=== PATIENT | female | born 1960 | race Caucasian/White ===

== ENCOUNTER → 2020-12-16 | Outpatient (CLI) | payer OTHER ==
--- NOTE | 2020-12-16 15:38 | XR ---
EXAMINATION TYPE: XR cervical spine comp DATE OF EXAM: 12/16/2020 COMPARISON: None HISTORY: 60-year-old female M5 0.20 TECHNIQUE: 5 views FINDINGS: Uncovertebral joint and facet arthropathy. Changes result in moderate to severe bony neural foraminal narrowing on the left at C5-C6 and C6-C7, moderate at C4-C5. On the right, changes result in moderate to severe bony neural foraminal narrowing at C4-C5 and moder ate at C5-C6 and C6-C7. Mild to moderate disc/endplate degenerative change with endplate spondylosis at C4-C7 levels. Alignme nt is maintained. Straightening of the normal cervical lordosis. No predental space widening or preve rtebral soft tissue swelling. Normal odontoid view. IMPRESSION: Moderate multilevel spondylotic change. No malalignment. Variable bony neuroforaminal narrowing as ou tlined above.
== END | disposition home or self-care (01) ==
LOC: RADXRMAIN 12:48
PROVIDERS: ATTEND Psychiatry & Neurology Neurology
DX: M50.20 Other cervical disc displacement, unspecified cervical region (principal)
CPT/HCPCS: 72050

== ENCOUNTER → 2021-01-03 | Outpatient (CLI) | payer OTHER ==
--- NOTE | 2021-01-03 09:18 | P.PAINCN ---
History of Present Illness - Reason for Consult Consult date: 01/03/21 - History of Present Illness This is a 60-year-old patient referred by Dr. Brenner for right occipital nerve block. Patient has been having significant migraine headaches for some time. Pain is located mostly on the right side starting in the back of her head with radiation into the front of her head, however she notes that sometimes she can have global right-sided headaches. She is currently being managed with a muscle relaxer, [place], Xanax. Her brain MRI showed that there were some scattered hyperintensities suggesting possible demyelination but she is not being worked up for anything active multiple sclerosis at this time. She recalls some type of injection in [address] Villafana but is unsure what type of injection was and only helped for a few days. In addition to above, 13-point review of systems is also negative for chest pain, shortness of breath, changes in vision, changes in hearing, new onset weakness, abdominal pain, diarrhea, extreme fatigue, malaise, fever, skin casanova es, homicidal or suicidal ideation, or bowel or bladder incontinence. Physical exam: Vital Signs: Reviewed in EMR GENERAL: Well appearing, in no acute distress PSYCH: Mood and affect is appropriate. Awake, alert, and oriented SKIN: Skin color, texture, turgor normal, no rashes or lesions HEENT: Normocephalic, atraumatic. EOM intact CV: No pedal edema RESP: Respirations are unlabored, no audible wheezing GI: Abdomen non-distended MUSCULOSKELETAL: Bilateral upper and lower extremity strength is normal and symmetric. No atrophy or tone abnormalities are noted. Neck: No pain to palpation over the cervical paraspinous muscles. Spurling negative, Axial Loading Test negative, Sunshine's sign negative. No pain with neck flexion, extension, or lateral flexion. No obvious deformity or signs of trauma. Normal cervical lordotic curve and normal cervical spine range of motion Tenderness to palpation over right ELLIOT/ROSY area NEUR: Bilateral upper and lower extremity coordination and muscle stretch reflexes are physiologic and symmetric. Negative clonus. No loss of sensation is noted. Cranial nerves are grossly intact. Imaging: Cervical X-ray 12/2020 There is moderate to severe bony neural foraminal narrowing on the left at C5-C6 and C7, moderate at C4-C5. On the right there is moderate to severe bony neural foraminal narrowing at C4-C5 and moderate at C5-C6 and C6-C7. Overall there is mild to moderate degenerative changes between C4 and C7. Assessment: 1. Occipital neuralgia 2. Chronic daily migraine headache Plan: - Schedule for right occipital nerve block. I spent 50 minutes on patient care today. The time was used to review medical records including relevant urine studies and prescription history (MAPs), review of the available imaging, evaluation and examination the patient, coordination of care at the medical staff and if applicable referring physicians, as well as creation of the medical record. Past Medical History Past Medical History: Coronary Artery Disease (CAD), Diabetes Mellitus, Hyperlipidemia, Hypertension, Skin Disorder, Sleep Apnea/CPAP/BIPAP Additional Past Medical History / Comment(s): headache, psoriasis, diverticulitis History of Any Multi-Drug Resistant Organisms: None Reported Past Surgical History: Heart Catheterization With Stent Additional Past Surgical History / Comment(s): colonoscopy Past Anesthesia/Blood Transfusion Reactions: No Reported Reaction, Motion Sickness Date of Last Stent Placement:: 01/07/20 Smoking Status: Current some day smoker Medications and Allergies Home Medications Medication Instructions Recorded Confirmed Type ALPRAZolam [Xanax] 0.25 mg PO DAILY PRN 09/21/20 12/30/20 History Aspirin [Adult Low Dose Aspirin EC] 81 mg PO DAILY 09/21/20 12/30/20 History Citalopram Hydrobromide 20 mg PO DAILY 09/21/20 12/30/20 History [Citalopram HBr] HYDROcodone/APAP 10-325MG [[place] 1 tab PO TID 09/21/20 12/30/20 History 10-325] Nitroglycerin Sl Tabs [Nitrostat] 0.4 mg SUBLINGUAL Q5M PRN 09/21/20 12/30/20 History Ozempic 0.5 mg IM TU 09/21/20 12/30/20 History Prasugrel [Effient] 10 mg PO DAILY 09/21/20 12/30/20 History Rosuvastatin Calcium [Crestor] 40 mg PO DAILY 09/21/20 12/30/20 History Topiramate 50 mg PO BID 09/21/20 12/30/20 History atenoloL 12.5 mg PO BID 09/21/20 12/30/20 History buPROPion HCL [buPROPion HCL Xl] 150 mg PO BID 09/21/20 12/30/20 History Cyclobenzaprine [Flexeril] 5 mg PO DAILY 12/30/20 12/30/20 History Allergies Allergy/AdvReac Type Severity Reaction Status Date / Time No Known Allergies Allergy Verified 12/30/20 12:16 PQRS Measure Charge Sheet PQRS Narrative: Pain Intensity [Neck] 8 Scale Used Numeric (1 - 10) Home Medications: Ambulatory Orders ALPRAZolam [Xanax] 0.25 mg PO DAILY PRN 09/21/20 Aspirin [Adult Low Dose Aspirin EC] 81 mg PO DAILY 09/21/20 Citalopram Hydrobromide [Citalopram HBr] 20 mg PO DAILY 09/21/20 HYDROcodone/APAP 10-325MG [[place] 10-325] 1 tab PO TID 09/21/20 Nitroglycerin Sl Tabs [Nitrostat] 0.4 mg SUBLINGUAL Q5M PRN 09/21/20 Ozempic 0.5 mg IM TU 09/21/20 Prasugrel [Effient] 10 mg PO DAILY 09/21/20 Rosuvastatin Calcium [Crestor] 40 mg PO DAILY 09/21/20 Topiramate 50 mg PO BID 09/21/20 atenoloL 12.5 mg PO BID 09/21/20 buPROPion HCL [buPROPion HCL Xl] 150 mg PO BID 09/21/20 Cyclobenzaprine [Flexeril] 5 mg PO DAILY 12/30/20
[2021-01-03 09:24] VITALS: BP 110/74; PULSE 82; RESP 18; TEMP 97.9
== END | disposition home or self-care (01) ==
LOC: PNWHC3 08:54
PROVIDERS: ATTEND Anesthesiology
DX: M54.81 Occipital neuralgia (principal)
CPT/HCPCS: 99211

== ENCOUNTER 2021-02-08 08:04 | Day surgery (SDC) | payer OTHER ==
[2021-02-04 16:16] VITALS: BMI 36.4
[2021-02-08] MEDS ORDERED: LACTATED RINGERS 1,000 ML IV ONE ×2 (08:25)
[2021-02-08 08:36] VITALS: TEMP 97.6
[2021-02-08 08:38] LABS: Glucose,Whole Blood 97 mg/dL (75-99)
[2021-02-08] MEDS ORDERED: fentaNYL (PF) 50 MCG/ML 2 ML AMP ONE (08:45)
[2021-02-08] MEDS ORDERED: methylPREDNISolone ACETATE 40 MG/ML 1 ML VIAL ONE (08:45)
[2021-02-08] MEDS ORDERED: LACTATED RINGERS 1,000 ML IV SCH (08:45)
[2021-02-08] MEDS ORDERED: MIDAZOLAM 2 MG/2 ML VIAL ONE (08:45)
[2021-02-08] MEDS ORDERED: ROPIVACAINE 5MG/ML 20ML VIAL ONE (08:45)
[2021-02-08] MEDS ORDERED: IV FLUID CONTINUATION 700 ML IV ONE (09:00)
--- NOTE | 2021-02-08 09:03 | P.PCN ---
Date of Procedure: 02/08/21 Description of Procedure: PREOPERATIVE DIAGNOSIS: Occipital neuralgia, and headaches POSTOPERATIVE DIAGNOSIS: Occipital neuralgia, and headaches PROCEDURES: 1. Right-sided Greater occipital nerve block SURGEON: Angely Castellanos ANESTHESIA: Local and IV sedation : Versed 2 mg, and fentanyl 50 g. EBL: None. Specimen removed: None PROCEDURE INDICATIONS: This patient with a history of chronic headaches, and occipital neuralgia. Patient tried conservative therapy. Came here for intervention management. Procedure and Findings: The patient was seen and examined and written informed consent was obtained after explaining the risks, benefits and alternative of the procedure to the patient. As per patient request for anxiety IV was started in the preoperative holding area for sedation. The patient was positioned in the sitting position with the head slightly flexed and forehead rested on a pillow. By palpation, the external occipital protuberance and mastoid process were identified and mid point in between was located. The target point for greater occipital nerve was just medial to the occipital artery pulsation. The skin preparation was done with ChloraPrep X2 and sterile technique was observed throughout the procedure. A 25-guage, 1.5 inch needle was used for the procedure. A 25-gauge 1.5 inch needle was placed vertically downward, bony contact was obtained, negative aspiration was confirmed and 8 ml solution was injected. The needle was redirected little medially and laterally in a fanning fashion and addition medication was injected after negative aspiration. The block solution containing 0.5% preservative-free bupivacaine 7 mL +40 MG of Depo-Medrol. The needle was removed, needle puncture sites were cleaned and pressure was applied. The patient tolerated the procedure very well. COMPLICATIONS: None. DISPOSITION / PLANS: The patient was placed in a supine position and transferred to the recovery area in a stable condition for observation and was discharged from the recovery room after meeting discharge criteria. Home discharge instructions given to the patient by the staff. The patient was reexamined prior to discharge. The patient will schedule for follow-up visit with the pain clinic in 2-4 weeks duration.
[2021-02-08 09:19] VITALS: BP 99/65; PULSE 67; RESP 20
== END 2021-02-08 09:32 | disposition home or self-care (01) ==
LOC: ORPAIN 08:04
DX: M54.81 Occipital neuralgia (principal); I10 Essential (primary) hypertension; I25.10 Atherosclerotic heart disease of native coronary artery without angina pectoris; Z95.818 Presence of other cardiac implants and grafts
CPT/HCPCS: 64405; J2250; J1030; J3010; J2795

== ENCOUNTER → 2021-03-02 | Outpatient (CLI) | payer OTHER ==
[2021-03-02 10:40] VITALS: BP 128/71; PULSE 78; RESP 18; TEMP 98.1
--- NOTE | 2021-03-02 10:41 | P.PN ---
Subjective Progress Note Date: 03/02/21 Principal diagnosis: Cervical radiculitis, daily migraine headaches Virginia is a 60-year-old female presenting to clinic today for follow-up appointment after a right occipital nerve block. She reports since that nerve block she has gotten greater than 40-50% relief. She feels like her headaches severities have decreased since injection. Today she is reporting sensory nerve blocks she now has a pain in her right arm which she describes as a pressure. The pain radiates down her arm and affects her first second and third digit of her right hand. Reports that pain is worse with sitting, lying, and driving. Pain is better with rest and medications. She has on the waiting list for physical therapy and she has seen a chiropractor without help. Her neurologist has recently ordered an x-ray of her C-spine and identified arthritis. She is following up with an MRI of her C-spine for continued headaches and arm pain. She reports the pain in her neck and arm is about a 5 out of 10 on average was going up to 8 out of 10 at its worst. Objective - Exam Physical Examinations : -Constitutiona : Cooperative , not in acute distress . -HEENT : nech : supple , no Lymphadenopathy , normal thyroid size . : eyes : no ptosis , no icterus, no photophobia . - neurologic : Cranial nerve II to XII intact , no focal neurological deffecit . -psychatric : alert , oriented X 3 , appropriate affect , intact judgment and insight . -Lymphatic : no Lymphadenopathy . - musculoskeltal : Cervical Spine motor stregnth in the deltoid and biceps, normal right side , normal Left side motor stregnth biceps and the wrist extensors normal right side ,normal left side . motor stregnth in the triceps muscle . normal Right side , normal Left side deep tendon reflexes normal at the biceps , normal at Brachioradialis , normal at triceps. cervical facet loading test: Positive Bilaterally Spurling test= positive Right Neck distraction test= positive Right Bri sign= negative Assessment and Plan Assessment: Assessment:Daily migraine headaches; cervical radiculopathy Plan: She could benefit from cervical epidural steroid injection at C7-T1 Continue to follow with neurology regarding her headaches - PQRS measures = - Patient's medications are documented in the chart. -Tobacco use is positive and counseling.Given. -Patient's has not received pneumococcal vaccine. -Advanced care planning discussed, patient not eligible. - -Pain positive and follow-up visit/procedure is scheduled. -Patient's blood pressure measured [ 127/93 ] , and documented in the record ,and patient will follow up with the primary care. -Patient was not identified as an unhealthy alcohol user Time with Patient: Less than 30
== END | disposition home or self-care (01) ==
LOC: PNWHC3 09:19
PROVIDERS: ATTEND Student in an Organized Health Care Education/Training Program
DX: M54.12 Radiculopathy, cervical region (principal); G43.909 Migraine, unspecified, not intractable, without status migrainosus
CPT/HCPCS: 99211

== ENCOUNTER 2021-05-26 11:10 | Day surgery (SDC) | payer OTHER ==
[2021-05-10 15:42] VITALS: BMI 36.6
[~2021-05-26 11:10] MED LIST: LACTATED RINGERS 1,000 ML IV SCH
[2021-05-26 11:41] VITALS: RESP 16; TEMP 98.1
[2021-05-26] MEDS ORDERED: LIDOCAINE 1% (10MG/ML) FOR IV START INTRADERMA ONE (11:54)
[2021-05-26] MEDS ORDERED: LACTATED RINGERS 1,000 ML IV ONE (11:55)
[2021-05-26 11:58] LABS: Glucose,Whole Blood 91 mg/dL (75-99)
[2021-05-26] MEDS ORDERED: DEXAMETHASONE SOD PHOSPHATE 10 MG/ML 1 ML VIAL ONE (12:17)
[2021-05-26] MEDS ORDERED: IOPAMIDOL M200 10 ML VIAL ONE (12:17)
[2021-05-26] MEDS ORDERED: MIDAZOLAM 2 MG/2 ML VIAL ONE (12:17)
[2021-05-26] MEDS ORDERED: fentaNYL (PF) 50 MCG/ML 2 ML AMP ONE (12:17)
--- NOTE | 2021-05-26 12:31 | P.PCN ---
Date of Procedure: 05/26/21 Procedure(s) Performed: . PROCEDURE 1. Cervical epidural steroid injection under fluoroscopic guidance, C7-T1 (fluoroscopy images available in the radiology department ) 2. Cervical epidurogram. PREOPERATIVE DIAGNOSIS: 1- Cervical herniated Disc Diseases 2- Cervical radiculopathy. POSTOPERATIVE DIAGNOSIS: : same as preop diagnosis ANESTHESIA: Local anesthesia with lidocaine 1 % , and moderate sedation, with Versed 1 mg and Fentanyl 50 mcg. EBL 0 PROCEDURE INDICATION: The patient with neck pain and radiculitis unresponsive to conservative treatment consents for procedure. PROCEDURE DESCRIPTION / TECHNIQUE: The patient was seen and identified in the preoperative area. Risks, benefits, complications, including but not limited to infections ,bleeding , allergic reactions to the medications ,and not complete pain releife, and alternatives were discussed with the patient, the patient agreed to proceed with the procedure and signed the consent. Patient was taken to the OR and time out was completed. The patient was placed in the prone position on the procedure table. A pillow wa s placed under the patients chest to increase the cervical interlaminar space. The cervical area was prepped and draped in the usual sterile fashion. Vital signs were closely monitored during the procedure. Conscious sedation was used during the procedure to decrease patients anxiety. Using anterior-posterior fluoroscopy, the C7-T1 interlaminar space was identified and the skin over this site was marked and then infiltrated with 1% lidocaine subcutaneously. Subsequently, a 20-gauge 3-1/2-inch Tuohy epidural needle was inserted and advanced toward the epidural space by means of the ``hanging-drop technique and guided by AP and lateral fluoroscopy. The correct needle position in the epidural space was verified with the injection of 2 mL of the water soluble contrast dye [id number]-200 and observing an excellent epidurogram with the epidural spread of the dye, after negative aspiration for blood and CSF and in the absence of paresthesias. then, mixture containing 15 mg Dexamethasone and 2 ml of preservative-free normal saline injected and a washout of epidurogram was seen. Needle was withdrawn intact, skin was cleansed, and bandages were applied. Complications= none. Disposition= patient was placed in supine position and transferred to the recovery room area in stable condition and there was no evidence of upper or lower extremity motor or sensory deficit after the procedure patient was discharged from recovery room after discharge criteria met and home discharge instructions was given by the staff and patient will follow with the pain clinic in 2-4 weeks
[2021-05-26] MEDS ORDERED: IV FLUID CONTINUATION 1,000 ML IV ONE (12:37)
--- NOTE | 2021-05-26 12:43 | FL ---
Fluoroscopy HISTORY: Pain 13 seconds fluoroscopy time supplied to the referring clinician. 1 intraoperative C-arm images docum ent the procedure. See dictated report from anesthesia.
[2021-05-26 12:54] VITALS: BP 108/55; PULSE 73
== END 2021-05-26 13:04 | disposition home or self-care (01) ==
LOC: ORPAIN 11:10
PROVIDERS: ATTEND Specialist
DX: M54.81 Occipital neuralgia (principal); M50.10 Cervical disc disorder with radiculopathy, unspecified cervical region
CPT/HCPCS: 62321; J2250; J1100; J3010; Q9966

== ENCOUNTER 2021-08-12 11:28 | Day surgery (SDC) | payer OTHER ==
[2021-08-11 12:05] VITALS: BMI 36.7
[~2021-08-12 11:28] MED LIST changes: +LIDOCAINE 1% (10MG/ML) FOR IV START INTRADERMA PRN
[2021-08-12 11:49] VITALS: TEMP 97
[2021-08-12 12:04] LABS: Glucose,Whole Blood 90 mg/dL (75-99)
[2021-08-12] MEDS ORDERED: MIDAZOLAM 2 MG/2 ML VIAL ONE (12:45)
[2021-08-12] MEDS ORDERED: methylPREDNISolone ACETATE 40 MG/ML 1 ML VIAL ONE (12:45)
[2021-08-12] MEDS ORDERED: fentaNYL (PF) 50 MCG/ML 2 ML AMP ONE (12:45)
[2021-08-12] MEDS ORDERED: ROPIVACAINE 5MG/ML 20ML VIAL ONE (12:45)
--- NOTE | 2021-08-12 13:14 | P.PCN ---
Date of Procedure: 08/12/21 Procedure(s) Performed: PREOPERATIVE DIAGNOSIS: 1-Cervical Spondylosis with Facet Arthropathy.without myelopathy. 2-cervical degenerative disc disease POSTOPERATIVE DIAGNOSIS: Same as preoperative diagnosis. PROCEDURES: Diagnostic bilateral C4 , C5 , and C6 medial branch blocks, with fluoroscopic guidance (fluoroscopy images available in radiology department ) ( to target the facet joint at bilateral C4- 5 , C5- 6 )#1st ANESTHESIA: Monitored anesthesia care as per anesthesia department . EBL: Minimal PROCEDURE INDICATION: The patient with neck pain secondary to cervical arthropathy unresponsive to more conservative treatments. PROCEDURE DESCRIPTION / TECHNIQUE: The patient was seen and identified in the preoperative area. Risks, benefits, complications, and alternatives were discussed with the patient, the patient agreed to proceed with the procedure and signed the consent. IV was started. Vital signs remained stable throughout the procedure. Patient was taken to the OR and time out was completed. The patient was placed in the supine position on the procedure table. A pillow was placed under the patients chest to increase the cervical interlaminar space. The cervical area was prepped and draped in the usual sterile fashion. Critical pause was taken. Vital signs were closely monitored during the procedure. Conscious sedation was used during the procedure to decrease patients anxiety. Using cross-table lateral fluoroscopy, the centroid of the trapezoid of right C4 , C5 and C6, was identified, marked, and localized with 1% lidocaine 1 ml at each level for skin and Sub Q infiltrations . Subsequently, a 25 G 3 spinal needle was advanced guided by fluoroscopy to the centroid of the trapezoid of Right C4 , C5, C6 . [place] tip position was confirmed at the centroid of the trapezoids of Right C4 , C5 ,C6 with anteroposterior fluoroscopy. Subsequently, 1.5 ml of preservative-free Ropivacaine 0.5% mixed with Depo- Medrol 20 mg and half ml of the mixture was injected after negative aspiration for blood and CSF. [place] was then removed intact the same procedure was repeated at the left C4 , C5 , and C6 levels. COMPLICATIONS: No acute complications. DISPOSITION / PLANS: The patient was placed in a supine position and transferred to the recovery area in a stable condition for observation and was discharged from the recovery room after meeting discharge criteria. Home discharge instructions given to the patient by the staff. The patient was reexamined prior to discharge. The patient will schedule a follow up in the clinic in 2-4 weeks. note= recommend to do the procedure and the supine position because in prone position I was not able to visualize C5 or C6 vertebra
[2021-08-12] MEDS ORDERED: IV FLUID CONTINUATION 1,000 ML IV ONE (13:16)
[2021-08-12 13:21] VITALS: RESP 18
--- NOTE | 2021-08-12 13:24 | FL ---
EXAMINATION TYPE: FL guided pain mgmt statistic DATE OF EXAM: 08/12/2021 CLINICAL HISTORY: Neck pain. TECHNIQUE: Fluoroscopy. COMPARISON: None. FINDINGS: Fluoroscopic guidance was provided during pain relief procedure performed by Dr. Chinchilla . A total of 13 seconds of fluoroscopic time was utilized during the procedure and two spot images a re acquired. Images acquired shows needle localization at several levels in the cervical spine. IMPRESSION: As Above.
[2021-08-12 13:37] VITALS: BP 100/78; PULSE 78
== END 2021-08-12 13:46 | disposition home or self-care (01) ==
LOC: ORPAIN 11:28
PROVIDERS: ATTEND Specialist
DX: M47.812 Spondylosis without myelopathy or radiculopathy, cervical region (principal); M50.30 Other cervical disc degeneration, unspecified cervical region
CPT/HCPCS: 64490; 64491; J2250; J1030; J3010; J2795

== ENCOUNTER → 2021-10-26 | Outpatient (CLI) | payer OTHER ==
--- NOTE | 2021-10-27 03:24 | MR ---
EXAMINATION TYPE: MR shoulder RT wo con DATE OF EXAM: 10/26/2021 COMPARISON: None HISTORY: Right shoulder pain, dislocation July 2021. Multiplanar multiecho imaging of the right shoulder without contrast. There is shoulder joint effusion and fluid around the biceps tendon. There is some thickening and def ormity of the anterior glenoid labrum. Posterior glenoid labrum appears intact. Subscapularis tendon is intact. Biceps tendon is intact. The supraspinatus tendon appears intact. No retraction. No signif icant subacromial impingement. There is minor spurring at the AC joint. The humeral head is intact. G lenoid is intact. No fracture seen. The infraspinatus tendon is intact. IMPRESSION: No evidence of rotator cuff tear. There is deformity of the anterior glenoid labrum with thickening a nd consistent with old injury. There is narrowing of the glenohumeral joint space and consistent with some developing osteoarthritis. Shoulder joint effusion. No significant subacromial impingement.
== END | disposition home or self-care (01) ==
LOC: RADMRIMAIN 19:11
PROVIDERS: ATTEND Orthopaedic Surgery
DX: M25.411 Effusion, right shoulder (principal); M25.511 Pain in right shoulder

== ENCOUNTER → 2022-02-20 | Outpatient (CLI) | payer OTHER ==
--- NOTE | 2022-02-21 09:00 | MR ---
EXAMINATION TYPE: MR cervical spine wo con DATE OF EXAM: 02/20/2022 INDICATION: Patient age:Female; 61 years old; Reason for study: M50.20 CERVICAL DISC DISPLACEMENT, UNSP CERVICAL R. Headaches, neck pain into bulmaro u pper extremities COMPARISON: MR C-spine 10/16/2015. TECHNIQUE: Multi planar, multi sequence imaging was performed utilizing: T1-weighted, T2-weighted, an d turbo inversion recovery imaging of the cervical spine. IV Contrast: None FINDINGS: Motion limited exam. Alignment: The cervical vertebral bodies have preserved heights. Alignment is within normal limits gi cristóbal patient positioning. Bones: Scattered Modic endplate changes with osteophytes and disc space narrowing. Multilevel degener ative disc disease is noted and most pronounced at the C4-C5, C5-6 and C6-C7 vertebral levels. There is T3 1 T1/high T2 focus most consistent with vertebral body hemangioma measuring up to 10 mm. Cord: The spinal cord is unremarkable with regards to their signal intensity and morphology. Discs: Multilevel disc desiccation is present. Motion limits evaluation C2-C3: No significant disc pathology. The spinal canal is patent. No neural foraminal stenosis. C3-C4: A disc osteophyte complex is present which minimally narrows the ventral subarachnoid space. Bilateral facet and uncovertebral joint arthropathy are present with mild bilateral neural foraminal stenosis. C4-C5: Disc osteophyte complex with and ligamentum flavum buckling results in moderate spinal canal s tenosis. Bilateral facet and uncovertebral joint arthropathy are present with at least moderate bila teral neural foraminal stenosis. C5-C6: Disc osteophyte complex with and ligamentum flavum buckling results in moderate to severe spin al canal stenosis. Bilateral facet and uncovertebral joint arthropathy are present with at least mod erate bilateral neural foraminal stenosis. C6-C7: Disc osteophyte complex with and ligamentum flavum buckling results in moderate spinal canal s tenosis. Bilateral facet and uncovertebral joint arthropathy are present with at least moderate bila teral neural foraminal stenosis. C7-T1: A disc osteophyte complex is present with mild spinal canal stenosis. Bilateral facet and unc overtebral joint arthropathy are present with mild bilateral neural foraminal stenosis. IMPRESSION: 1. Motion limited exam with Multilevel disc degeneration changes worse at C4-C5, C5-C6 and C6-C7. The re is at least moderate to severe C5-C6 and moderate C4-C5 and C6-7 spinal canal stenosis. Overall wh en comparing to prior in 2016 the central canal stenosis is not all that different given motion.. 2. Multilevel disc degeneration with associated osteoarthritic changes resulting in varying degrees o f neural foraminal stenosis which evaluation is limited due to motion. 3. Diffuse red marrow conversi on can be seen in the setting of tobacco abuse, anemia, or myeloproliferative disorder.
== END | disposition home or self-care (01) ==
LOC: RADMRIMAIN 07:39
PROVIDERS: ATTEND Psychiatry & Neurology Neurology
DX: M50.20 Other cervical disc displacement, unspecified cervical region (principal); M54.81 Occipital neuralgia; G43.009 Migraine without aura, not intractable, without status migrainosus
CPT/HCPCS: 72141

== ENCOUNTER → 2023-02-16 | Outpatient (CLI) | payer OTHER ==
--- NOTE | 2023-02-21 09:14 | MM ---
Reason for Exam: Screening (asymptomatic). Baseline mammogram. Patient History: Menarche at age 15. First Full-Term at age 20. Postmenopausal. Patient has history of breast feeding. Risk Values: Rachel 5 year model risk: 1.0%. NCI Lifetime model risk: 5.3%. Prior Study Comparison: Patient's first Mammogram. Tissue Density: The breast tissue is heterogeneously dense. This may lower the sensitivity of mammography. Findings: Analyzed By CAD. There is no suspicious group of microcalcifications or new suspicious mass in either breast. Overall Assessment: Negative, BI-RAD 1 Management: Screening Mammogram of both breasts in 1 year. . Patient should continue monthly self-breast exams. A clinical breast exam by your physician is recommended on an annual basis. This exam should not preclude additional follow-up of suspicious palpable abnormalities. Note on Rachel scores and lifetime risk: 1. A Rachel score greater than 3% is considered moderate risk. If this is the case, consider specialist referral to assess eligibility for a risk reducing agent. 2. If overall lifetime risk for the development of breast cancer is 20% or higher, the patient may qualify for future screening with alternating mammogram and breast MRI. Electronically signed and approved by: Mendoza Cervantes M.D. Radiologis
== END | disposition home or self-care (01) ==
LOC: RADMAMWWP 16:26
PROVIDERS: ATTEND Family Medicine
DX: Z12.31 Encounter for screening mammogram for malignant neoplasm of breast (principal); Z78.0 Asymptomatic menopausal state
CPT/HCPCS: 77063; 77067

== ENCOUNTER → 2023-02-27 | Outpatient (CLI) | payer OTHER ==
--- NOTE | 2023-02-27 12:00 | CTL ---
EXAMINATION TYPE: CT Low Dose Lung DATE OF EXAM: 02/27/2023 11:35 AM CLINICAL INDICATION:Female, 62 years old with history of Z87.891 PERSONAL HX TOBACCO USE F17.210 [facility] SM; personal hx of nicotine dependence 1pack/day X 30years current smoker , history of tobacco us e. COMPARISON: None TECHNIQUE: Multiple axial non-contrast scans were obtained from approximately the lung apices through the upper abdomen. Coronal and sagittal reformatted images were obtained. Low dose technique was uti lized. CT DLP: 131.1 mGycm, Automated exposure control for dose reduction was used. CT Contrast: Contrast used: None Oral contrast used: None FINDINGS: ======== Lack of intravenous contrast and low dose technique limits the evaluation of the vascular and soft ti ssue structures. LUNGS: No evidence of pulmonary fibrosis. No evidence of focal consolidation, pneumothorax or pleural effusion. Nodules: RUL: Calcified nodule series 6 image 21. RML: Calcified nodule image 32, 2 mm image 33 RLL: 2 mm image 33 SUNSHINE: 2 mm image 23, 18, 15 LLL: Calcified nodule image 38 and 43.. AIRWAY: Patent and unremarkable. HEART: Size within normal limits. Atherosclerosis of the coronary arteries mild to moderate. MEDIASTINUM: No gross evidence of adenopathy. VASCULATURE: No aortic aneurysm. MUSCULOSKELETAL: Mild disc degeneration changes are present throughout the thoracolumbar spine. SOFT TISSUES/LYMPH NODES: Unremarkable. LOWER NECK: No significant findings. UPPER ABDOMEN: No significant findings. IMPRESSION: No clinically significant pulmonary nodules. Scattered evidence of chronic granulomatous disease with scattered nodules. CT LUNG RAD AND CT CHEST RECOMMENDATION: Lung-Rad 2 Benign Appearance or Behavior: Continue annual sc reening with LDCT in 12 months. S Modifier (other clinically significant findings): None Recommend smoking cessation (if current smoker), or continuation of smoking cessation (if prior smoke r). Annual screening for lung cancer with low-dose computed tomography is recommended in adults ages 55 to 77 years who have a 30 pack-year smoking history and currently smoke or have quit within the pa st 15 years. Screening should be discontinued once a person has not smoked for 15 years or develops a health problem that substantially limits life expectancy or the ability or willingness to have curat elisa lung surgery. Lung rads 2021 [email or web address]
== END | disposition home or self-care (01) ==
LOC: RADCTMAIN 10:51
PROVIDERS: ATTEND Family Medicine
DX: Z12.2 Encounter for screening for malignant neoplasm of respiratory organs (principal); F17.210 Nicotine dependence, cigarettes, uncomplicated; R91.8 Other nonspecific abnormal finding of lung field; L92.9 Granulomatous disorder of the skin and subcutaneous tissue, unspecified
CPT/HCPCS: 71271

== ENCOUNTER → 2023-03-12 | Outpatient (CLI) | payer OTHER ==
[2023-03-12 12:54] VITALS: BP 136/93; PULSE 98; RESP 16; TEMP 98.2
--- NOTE | 2023-03-12 13:49 | P.PAINPG ---
Objective - Vital Signs Vital signs: Intake & Output 03/11/23 03/12/23 03/12/23 18:59 06:59 18:59 Weight 113.398 kg PQRS Measure Charge Sheet Comment: A 60 yr old female w son at side with a history of severe and chronic neck pain secondary to cervical degenerative disc diseases and spondylosis with facet arthropathy presents today for evaluation of R knee pain. Pain level is provoked at 8/ 10 in intensity, constant, dull, achy in the lower aspect of the cervical spine with shooting tingling to the shoulders bilaterally. Pain is provoked by walking. Pain is alleviated with medications, injections, use of a cane for ambulatory assistance, ice, heat, massage therapy, home exercise regimen daily, and rest. Interventional pain procedures completed include R ELLIOT injection x1, DOMINIQUE C7-T1 #1 Patient is currently on Norco10/325mg #90, Flexeril Patient denies any side effects of the medication(s), denies excessive drowsiness or sleepiness, denies suicidal ideation and reports that the current pain medication is helping to control the pain and improve activities of daily living. Patient denies any motor or sensory deficits. Patient denies any fever or night sweats, denies any change in the bowel movements or urination. Physical Examination: -Constitutional: Cooperative. Not in acute distress . -HEENT: Neck is supple. No lymphadenopathy. No thyromegaly. Normal thyroid size. Eyes: No ptosis , no icterus, no photophobia. ENT: No auditory deficits. Normal oropharynx. No Thrush. - Respiratory: Chest clear to auscultations bilaterally. No wheezing. No rhonchi. - Cardiovascular: Regular rate and rhythm. S1 / S2 , no S3 , no S4. - Gastrointestinal: Abdomen soft no tenderness. Bowel sounds positive in all four quadrants. No organomegaly. - Genitourinary: Deferred. - Neurologic: Cranial nerve II to XII intact. No focal neurological deficits. - Psychatric: Alert & oriented x 3. Matching mood & appropriate affect. Judgment and insight intact. - Lymphatic: No Lymphadenopathy. - Musculoskeletal: Cervical spine: Muscle bulk/ tone/ strength in the bilateral upper extremities normal. Mild vertebral body tenderness over C5 Facet loading test cervical area positive Distraction test positive Lumbar spine: +R diffuse peripatellar TTP Motor bulk/ tone/ strength lower extremities , thigh and legs : 5/5 Deep tendon reflexes : Normal Knee Jerk. Normal Ankle Jerk . Vertebral body tenderness to palpation over Lumbar Facet Loading Test positive Straight Leg Raise: positive at 30 degrees right side/ left side Gaenslen's Test positive Sacral spine : Severe tenderness over the Sacroiliac joint: right side / left side Range of motion: Flexion of the lumbar spine <60 degrees Range of motion: Extension of the lumbar spine <20 degrees Gaenslen's Test positive Sharath test: positive right side / left side Assessment and plan: Chronic neck pain secondary to cervical degenerative disc disease , spondylosis with facet arthropathy without myelopathy Recommendation of x ray M17.11 May need additional testing for if indicated. Pt requesting pain medications only and will follow up w another facility if she is disinterested in procedures. Diagnoses, prognosis and treatment options including but not limited to physical therapy, surgical interventions, interventional therapies and medication management including narcotics and adjuvant medication were discussed. All patient questions answered MAPS reviewed and it was appropriate. I have spent 31 minutes on patient care today. Dr Chinchilla was available by phone for the evaluation of this patient. The time was used to review the medical records including relevant urine studies and Prescription history (MAPs), review of the available imaging, evaluation and examination of the patient, coordination of care with the medical staff and if applicable referring physicians, as well as creation of the medical record PQRS Narrative: Hx Alcohol Use (MH) No Home Medications: Ambulatory Orders ALPRAZolam [Xanax] 0.25 mg PO DAILY PRN 09/21/20 Aspirin [Adult Low Dose Aspirin EC] 81 mg PO DAILY 09/21/20 Citalopram Hydrobromide [Citalopram HBr] 20 mg PO DAILY 09/21/20 HYDROcodone/APAP 10-325MG [[place] 10-325] 1 tab PO TID 09/21/20 Nitroglycerin Sl Tabs [Nitrostat] 0.4 mg SUBLINGUAL Q5M PRN 09/21/20 Rosuvastatin Calcium [Crestor] 40 mg PO DAILY 09/21/20 Semaglutide [Ozempic] 1 mg SQ TU 09/21/20 Topiramate 50 mg PO BID 09/21/20 atenoloL 12.5 mg PO BID 09/21/20 buPROPion HCL [buPROPion HCL Xl] 150 mg PO DAILY 09/21/20 Cyclobenzaprine [Flexeril] 5 mg PO DAILY 12/30/20 Controlled Substance Measures - Controlled Substance Measures Is patient prescribed a controlled substance at discharge?: No
== END ==
LOC: PNWHC3 11:59
PROVIDERS: ATTEND Specialist
DX: M47.812 Spondylosis without myelopathy or radiculopathy, cervical region (principal); M17.11 Unilateral primary osteoarthritis, right knee; M51.26 Other intervertebral disc displacement, lumbar region; M50.20 Other cervical disc displacement, unspecified cervical region; G89.29 Other chronic pain; Z79.82 Long term (current) use of aspirin
CPT/HCPCS: 99211

== ENCOUNTER → 2023-04-03 | Outpatient (CLI) | payer OTHER ==
[2023-04-03 18:15] LABS: Eosinophils # (A) 0.18 X 10*3/uL (0.04-0.35); Eosinophils % (A) 1.9 %; HGB 14.8 g/dL (12.0-15.0); Lymphocytes # (A) 2.36 X 10*3/uL (0.90-5.00); Lymphocytes % (A) 24.4 %; MCH 30.2 pg (27.0-32.0); MCHC 32.2 g/dL (32.0-37.0); MCV 93.9 FL (80.0-97.0); Monocytes # (A) 0.44 X 10*3/uL (0.20-1.00); Monocytes % (A) 4.6 %; NRBC Per 100 WBC 0 X 10*3/uL (0.00-0.01); Neutrophils # (A) 6.55 X 10*3/uL (1.80-7.70); Neutrophils % (A) 67.8 %; Platelet Count 408 X 10*3/uL (140-440); WBC 9.66 X 10*3/uL (4.50-10.00)
[2023-04-03 18:29] LABS: ALT 12 U/L (8-44); AST 10 U/L (13-35); Albumin 4.2 g/dL (3.8-4.9); Albumin/Globulin Ratio 1.91 Ratio (1.60-3.17); Alkaline Phosphatase 151 U/L (41-126); BUN/Creat Ratio 11.38 Ratio (12.00-20.00); Blood Urea Nitrogen 9.1 mg/dL (9.0-27.0); Calcium 9.4 mg/dL (8.7-10.3); Carbon Dioxide 20.7 mmol/L (21.6-31.8); Chloride 106 mmol/L (96-109); Chol/HDL Ratio 3.85 Ratio; Globulin 2.2 g/dL (1.6-3.3); Glucose 128 mg/dL (70-110); LDL Cholesterol,Calculated 91.7 mg/dL (0.0-131.0); Potassium 4.2 mmol/L (3.5-5.5); Sodium 139 mmol/L (135-145); Total Bilirubin <0.2 mg/dL (0.3-1.2); Total Protein 6.4 g/dL (6.2-8.2)
== END | disposition home or self-care (01) ==
LOC: LABWHC1 13:47
PROVIDERS: ATTEND Family Medicine
DX: I10 Essential (primary) hypertension (principal); E11.9 Type 2 diabetes mellitus without complications; Z79.899 Other long term (current) drug therapy
CPT/HCPCS: 36415; 80053; 80061; 83036; 84443; 85025

== ENCOUNTER → 2024-02-27 | Outpatient (CLI) | payer OTHER ==
[2024-02-27 16:07] LABS: Basophils # (A) 0.06 X 10*3/uL (0.00-0.10); Basophils % (A) 0.7 %; Eosinophils # (A) 0.18 X 10*3/uL (0.04-0.35); HGB 14.7 g/dL (12.0-15.0); Lymphocytes # (A) 3.81 X 10*3/uL (0.90-5.00); Lymphocytes % (A) 41.5 %; MCH 30.6 pg (27.0-32.0); MCHC 32.7 g/dL (32.0-37.0); MCV 93.8 FL (80.0-97.0); Mean Platelet Volume 9.7 FL (9.5-12.2); Monocytes # (A) 0.48 X 10*3/uL (0.20-1.00); Monocytes % (A) 5.2 %; NRBC Per 100 WBC 0 X 10*3/uL (0.00-0.01); Neutrophils # (A) 4.63 X 10*3/uL (1.80-7.70); Neutrophils % (A) 50.4 %; Platelet Count 401 X 10*3/uL (140-440); RDW 14.8 % (11.5-14.5); WBC 9.18 X 10*3/uL (4.50-10.00)
[2024-02-27 16:37] LABS: Erythrocyte Sedimentation Rate 16 mm/Hr (0-30)
[2024-02-27 16:39] LABS: Appearance,Urine Cloudy (Clear); Bilirubin,Urine Negative (Negative); Blood,Urine Negative (Negative); Color,Urine Yellow (Yellow); Ketones,Urine Negative (Negative); Nitrite,Urine Negative (Negative); PH, Urine 5.5; Specific Gravity,Urine 1.016 (1.001-1.030)
[2024-02-27 16:49] LABS: Bacteria,Urine 3+ (None Seen)
[2024-02-27 17:06] LABS: ALT 13 U/L (8-44); AST 14 U/L (13-35); Albumin/Globulin Ratio 1.82 Ratio (1.60-3.17); Alkaline Phosphatase 124 U/L (41-126); Blood Urea Nitrogen 9.8 mg/dL (9.0-27.0); Calcium 9.1 mg/dL (8.7-10.3); Carbon Dioxide 22.3 mmol/L (21.6-31.8); Chloride 106 mmol/L (96-109); Chol/HDL Ratio 3.72 Ratio; Globulin 2.2 g/dL (1.6-3.3); Glucose 97 mg/dL (70-110); LDL Cholesterol,Calculated 83.2 mg/dL (0.0-131.0); Potassium 4.2 mmol/L (3.5-5.5); Rheumatoid Factor, Qnt <15 IU/mL (0-15); Sodium 140 mmol/L (135-145); Total Bilirubin <0.2 mg/dL (0.3-1.2); Total Protein 6.2 g/dL (6.2-8.2)
[2024-02-27 22:04] LABS: Microalbumin Creatinine Ratio <7 mg/g Cr (0-30)
[2024-02-28 19:15] LABS: ANA Pattern Speckled
== END | disposition home or self-care (01) ==
LOC: LABWHC1 12:04
PROVIDERS: ATTEND Family Medicine
CPT/HCPCS: 36415; 80053; 80061; 81001; 82043; 82570; 82784; 83036; 84443; 85025; 85652; 86038; 86039; 86431

== ENCOUNTER → 2024-08-11 | Outpatient (CLI) | payer OTHER ==
--- NOTE | 2024-08-11 14:29 | CTL ---
EXAMINATION TYPE: CT Low Dose Lung DATE OF EXAM ORDERED: 08/11/2024 COMPARISON: CT Low Dose Lung 02/27/2023 CLINICAL INDICATION: Female, 63 years old with history of Z12.2 Screening; F17.210 Nicotine dependenc e; PHH, SMOKER, Lung cancer screening, History of Smoking/tobacco use. TECHNIQUE: Low dose computed tomography scan was performed through the chest at 1 mm thick sections a nd reconstructed images in multiple planes at 1 mm and [address] DLP: 133.[address] CTDI: 3.47 mGy Automated exposure control for dose reduction was used. CT DIAGNOSTIC QUALITY: Satisfactory FINDINGS: Nodules: Multiple stable scattered calcified granulomas with largest in the left lower lobe measuring 5 mm. Stable right midlung 1.7 mm pulmonary nodule (series 6, image 38). LUNGS: COPD: Severity: Minimal Fibrosis: Severity: None Lymph nodes: None Other findings: None RIGHT PLEURAL SPACE: Effusion: None Calcification: None Thickening: None Pneumothorax: None LEFT PLEURAL SPACE: Effusion: None Calcification: None Thickening: None Pneumothorax: None HEART: Heart Size: Normal Coronary Calcification: Moderate Pericardial Effusion: None OTHER FINDINGS: Upper abdomen: Diverticulosis of the visualized splenic flexure. Bony thorax: Mild multilevel degenerative disc disease of the visualized thoracolumbar spine. Supraclavicular region: None Other: Atherosclerotic calcification of the aorta and its branches. IMPRESSION: Multiple calcified pulmonary nodules most consistent with granulomas. No new or enlarging pulmonary nodules. CT LUNG RAD AND CT CHEST RECOMMENDATION: Lung-Rad 2 Benign Appearance or Behavior: Continue annual sc reening with LDCT in 12 months. S Modifier (other clinically significant findings): None [facility], , 08/11/2024 2:26 PM
== END | disposition home or self-care (01) ==
LOC: RADCTMAIN 13:01
PROVIDERS: ATTEND Family Medicine
DX: Z12.2 Encounter for screening for malignant neoplasm of respiratory organs (principal); F17.210 Nicotine dependence, cigarettes, uncomplicated; R91.8 Other nonspecific abnormal finding of lung field
CPT/HCPCS: 71271